=== PATIENT | female | born 1980 | race African-American/Black ===

== ENCOUNTER 2024-04-19 03:14 | Emergency (ER) | payer MEDICAID, OTHER ==
[~2024-04-19] VITALS: Ht 157.5 cm; Wt 54.4 kg
[2024-04-19] MEDS ORDERED: predniSONE 20 MG TABLET ONE (04:04)
[2024-04-19] MEDS: predniSONE 20 MG TABLET PO ONE (04:07)
[2024-04-19] MEDS: IPRATROPIUM NEB FS 0.5 MG/2.5 ML AMPUL.NEB NEB ONE (04:09)
[2024-04-19] MEDS: ALBUTEROL FS 2.5 MG/3 ML VIAL.NEB NEB ONE (04:09)
[2024-04-19 04:12] VITALS: O2SAT 95
[2024-04-19] MEDS ORDERED: IPRATROPIUM NEB FS 0.5 MG/2.5 ML AMPUL.NEB ONE (04:20)
[2024-04-19] MEDS ORDERED: ALBUTEROL FS 2.5 MG/3 ML VIAL.NEB ONE (04:20)
[2024-04-19 04:22] VITALS: O2SAT 99
[2024-04-19 04:25] VITALS: O2SAT 99
[2024-04-19 04:35] VITALS: O2SAT 99
[2024-04-19] MEDS ORDERED: PRED50TA PO (05:07)
[2024-04-19] MEDS ORDERED: ALBU8.5H8 INH (05:07)
[2024-04-19 06:06] VITALS: BP 145/93; TEMP 97.5; O2SAT 100
== END 2024-04-19 06:07 | disposition home or self-care (01) ==
LOC: ER 03:16
DX: J45.901 Unspecified asthma with (acute) exacerbation (principal); J06.9 Acute upper respiratory infection, unspecified; B97.89 Other viral agents as the cause of diseases classified elsewhere; Z59.00 Homelessness unspecified; Z79.52 Long term (current) use of systemic steroids
CPT/HCPCS: 99285; 94799; 94640; J7512